=== PATIENT | female | born 1965 | race Caucasian/White ===

== ENCOUNTER 2016-12-05 14:31 | Emergency (ER) | payer OTHER ==
--- NOTE | 2016-12-05 16:20 | DIAGNOSTIC IMAGING REPORT ---
PROCEDURE: XR CHEST 2 VIEW INDICATION: COUGH TECHNIQUE: Two views COMPARISON: 09/03/2015 FINDINGS: The cardiomediastinal contour is normal. No central venous congestion. The pulmonary arteries are prominent. The lungs hyperinflated but clear without focal consolidation, pleural effusion or pneumothorax. The osseous structures are intact. IMPRESSION: 1. No acute disease. 2. Findings of COPD/emphysema.
--- NOTE | 2016-12-05 16:35 | ED ORDER SUMMARY ---
..... Patient: VELASQUEZ RICH OrderSheet [facility] VisitID: [id number] [address] [place] [address] 51y, F Registration Date/Time: 12/05/2016 ORDER SHEET Weight: 95.2 kg (stated) Allergies: Codeine GENERAL ORDERS: CBC w Diff Urgent (15:01 12/05/2016 EKoroleva P.A.-C) (Ack 15:04 IJurca R.N.) (15:18 KKnebel R.N.) CMP Urgent (15:01 12/05/2016 EKoroleva P.A.-C) (Ack 15:04 IJurca R.N.) (15:18 KKnebel R.N.) UA-Culture if indicated Urgent (15:01 12/05/2016 EKoroleva P.A.-C) (Ack 15:04 IJurca R.N.) (15:19 KKnebel R.N.) TSH Urgent (15:01 12/05/2016 EKoroleva P.A.-C) (Ack 15:04 IJurca R.N.) (15:18 KKnebel R.N.) CBC w Diff Urgent (15:03 12/05/2016 EKoroleva P.A.-C) (Ack 15:04 IJurca R.N.) (15:18 KKnebel R.N.) CMP Urgent (15:03 12/05/2016 EKoroleva P.A.-C) (Ack 15:04 IJurca R.N.) (15:18 KKnebel R.N.) Chest 2V Urgent (15:53 12/05/2016 EKoroleva P.A.-C) (Ack 15:56 PWeiler ER Tech1) (16:12 LNations ER Tech1) Vitals (16:39 12/05/2016 EKoroleva P.A.-C) (17:08 LWhalen R.N.) MEDICATION ORDERS: DuoNeb Neb Tx 1 unit dose (NOW) (16:18 12/05/2016 EKoroleva P.A.-C) (Ack 16:26 KKnebel R.N.) (17:08 Simba AbadNYung) IV FLUIDS: IV NS : initial bolus 1000 mL (1000 mL/hr), then 1000 mL/hr for X1 (NOW); Virgil (15:02 12/05/2016 Eren P.AYung-Kathy) (15:25 Brittnee R.N.) ORDER SHEET NOTES: [Electronically signed by Jeni Rust R.N. (17:11 12/05/2016)] [Electronically signed by Brea WatersAYung-Kathy (18:01 12/05/2016)] [Electronically locked/signed by Jeni Rust R.N. (17:11 12/05/2016)]
--- NOTE | 2016-12-05 16:35 | ED NURSING NOTES ---
Clinical Report - Nurses [facility] [address] [place] [address] 12/05/2016 14:35 Patient: VELASQUEZ RICH TRIAGE Triage time 14:42 Dec 05 2016. Acuity: LEVEL 3. Chief Complaint: COUGH. Alert. No acute distress. KAI COMA SCORE: Kai Coma Scale: 15- eyes open spontaneously (4); best verbal response- oriented x 4 (5); best motor response- obeys commands (6). --14:47 Funmi Daniels R.N. 14:42 12/05/16. BP: 110/73. HR: 72. RR: 16. O2 saturation: 100%. Temp: 97.6 F. Pain level now: 06/07. --14:47 Funmi Daniels R.N. Weight: 95.2 kg stated. Height/Length: 64 inches Per Patient. BMI: 36.1. --14:46 Funmi Daniels R.N. Medications Albuterol Sulfate HFA Inhalation, as needed. Augmentin Oral 875 mg, 2x a day. Hydrocodone-Acetaminophen Oral (Solution 7.5-325 mg/15mL), as needed. --17:11 Jeni Rust R.N. Lisinopril Oral. Lovastatin Oral. Nasacort AQ Nasal, as needed. --17:11 Jeni Rust R.N. Allergies Codeine. --17:11 Jeni Rust R.N. History Arrived by private vehicle. Historian: patient. The patient has had a headache, sinus pain and difficulty breathing. ( dizzy). PAST MEDICAL HX: Immunizations: up-to-date. The patient is post-menopausal. SOCIAL HX: Current every day light tobacco smoker (cigarette)- less than 1/2 a pack per day. History of drug use: marijuana. Recently used drugs yesterday. No alcohol use. No infectious disease exposure. SELF HARM ASSESSMENT: A self harm assessment was performed. The patient answered "no" to the question "Do you have thoughts of harming or killing yourself?" and "Have you recently had thoughts about harming or killing others?". FALL RISK ASSESSMENT: Fall risk assessment completed. No fall risk identified. NUTRITIONAL RISK ASSESSMENT: The nutritional risk assessment revealed no deficiencies. FUNCTIONAL ASSESSMENT: Functional assessment: no impairments noted. LEARNING NEEDS ASSESSMENT: The learning needs assessment revealed no barriers. ABUSE ASSESSMENT: Abuse assessment: The patient was asked "Do you feel safe in your home?". SKIN INTEGRITY ASSESSMENT: Skin integrity risk assessment completed. No skin integrity risk identified. --14:47 Funmi Daniels R.N. Interventions ID band on patient. To room. --14:47 Funmi Daniels R.N. PHYSICAL ASSESSMENT Ambulatory to room. GENERAL / NEURO / PSYCH: Alert. Oriented X 4. Appears in no acute distress. HEENT: Voice within normal limits. RESPIRATORY: Respirations not labored. The patient can speak in full sentences. Crackles in the bases bilaterally. Nonproductive cough. Expiratory wheezes present. CVS: Capillary refill less than 2 seconds. SKIN: Skin is warm and dry. --14:50 Funmi Daniels R.N. NURSING PROGRESS NOTES Oxygen administered. Patient gowned. Head of bed elevated. Patient identifiers checked. Call light placed in reach. Bed placed in lowest position. Brakes of bed on. --14:50 Funmi Daniels R.N. 15:15 12/05/16. Patient ID band checked for patient name and birthdate: patient confirmed. Blood samples drawn from the right antecubital space with 21g butterfly by nurse ; labeled in presence of the patient and sent to lab: rainbow set. --15:26 Funmi Daniels R.N. 15:25 12/05/2016 Site #1 started via IV in the left antecubital space with an 20g angiocath, with aseptic technique and good blood return; one attempt. Saline lock flushed. --15:25 Funmi Daniels R.N. 15:25 12/05/2016 Started bag #1 1000 mL IV Fluids IV NS (Saline); bolus of 1000 mL over 1 hour(s) via site #1. Allergies verified and confirmed 5 rights. IV patency established. IV site checked: no pain, redness, or swelling. IV flushed thoroughly pre- and post-medication administration. --15:25 Funmi Daniels R.N. 16:58 12/05/2016 Duoneb (Ipratropium-Albuterol) Neb TX Nebulizer 1 unit dose given. Given by the respiratory therapist. --17:08 Jeni Rust R.N. DISPOSITION / DISCHARGE Departure time: :Dec 05 2016. Condition at departure: improved. No learning barriers present. Discharge instructions provided and reviewed with the patient. Reviewed warnings. Reviewed medication(s). Treatments reviewed. Reviewed referrals. Patient verbalized understanding. Written instructions provided in Cymro. The patient was discharged home. She left the Emergency Department ambulatory and via private vehicle. Patient driving. --17:10 Jeni Rust R.N. 17:08 12/05/16. BP: 146/80. HR: 66. RR: 18. O2 saturation: 97%. Temp: 98.4 F. Pain level now 07/08. --17:10 Jeni Rust R.N. 17:05 12/05/2016 Site #1 removed upon discharge. Catheter intact. Pressure dressing applied. --17:10 Jeni Rust R.N. Locked/Released at 12/05/2016 17:11 by Jeni Rust R.N.
--- NOTE | 2016-12-05 16:35 | ED ORDER SUMMARY ---
..... Patient: VELASQUEZ RICH OrderSheet [facility] VisitID: [id number] [address] [place] [address] 51y, F Registration Date/Time: 12/05/2016 ORDER SHEET Weight: 95.2 kg (stated) Allergies: Codeine GENERAL ORDERS: CBC w Diff Urgent (15:01 12/05/2016 EKoroleva P.A.-C) (Ack 15:04 IJurca R.N.) (15:18 KKnebel R.N.) CMP Urgent (15:01 12/05/2016 EKoroleva P.A.-C) (Ack 15:04 IJurca R.N.) (15:18 KKnebel R.N.) UA-Culture if indicated Urgent (15:01 12/05/2016 EKoroleva P.A.-C) (Ack 15:04 IJurca R.N.) (15:19 KKnebel R.N.) TSH Urgent (15:01 12/05/2016 EKoroleva P.A.-C) (Ack 15:04 IJurca R.N.) (15:18 KKnebel R.N.) CBC w Diff Urgent (15:03 12/05/2016 EKoroleva P.A.-C) (Ack 15:04 IJurca R.N.) (15:18 KKnebel R.N.) CMP Urgent (15:03 12/05/2016 EKoroleva P.A.-C) (Ack 15:04 IJurca R.N.) (15:18 KKnebel R.N.) Chest 2V Urgent (15:53 12/05/2016 EKoroleva P.A.-C) (Ack 15:56 PWeiler ER Tech1) (16:12 LNations ER Tech1) Vitals (16:39 12/05/2016 EKoroleva P.A.-C) (17:08 LWhalen R.N.) MEDICATION ORDERS: DuoNeb Neb Tx 1 unit dose (NOW) (16:18 12/05/2016 EKoroleva P.A.-C) (Ack 16:26 KKnebel R.N.) (17:08 Simba AbadNYung) IV FLUIDS: IV NS : initial bolus 1000 mL (1000 mL/hr), then 1000 mL/hr for X1 (NOW); Virgil (15:02 12/05/2016 Eren P.AYung-Kathy) (15:25 Brittnee R.N.) ORDER SHEET NOTES: [Electronically signed by Jeni Rust R.N. (17:11 12/05/2016)] [Electronically signed by Brea WatersAYung-Kathy (18:01 12/05/2016)] [Electronically locked/signed by Jeni Rust R.N. (17:11 12/05/2016)]
--- NOTE | 2016-12-05 16:35 | ED CLINICAL REPORT ---
Clinical Report - Physicians/Mid Levels [facility] [address] [place] [address] 12/05/2016 14:35 Patient: VELASQUEZ RICH Time Seen: 15:01 Dec 05 2016. Arrived- By private vehicle. Historian- patient. HISTORY OF PRESENT ILLNESS Chief Complaint: COUGH and SINUS PAIN. 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 The patient has had a cough and difficulty breathing. No nasal congestion or discharge. (patient presents with weakness, cough. He reports the time she has had a headache, frontal in nature with congestion, because production in the morning. Patient is awaiting new PCP, surgeries and PCP has left, Dr. Kauffman. Denies hemoptysis. Denies hematochezia. Denies recent travel. patient with no syncope, no worsening of her shortness of breath No chest pain.). Additional history - No known contact with a sick individual. REVIEW OF SYSTEMS No headache, nausea, diarrhea, abdominal pain or pedal edema. All systems otherwise negative, except as recorded above. PAST HISTORY Problems: Bronchospasm. Sinusitis. Bronchitis. Hypertension. Hypercholesterolemia. Additional Surgeries: Tonsillectomy. Tubal Ligation. SOCIAL HISTORY Current every day smoker. History of drug use: marijuana. ADDITIONAL NOTES The nursing notes have been reviewed. PHYSICAL EXAM Vital Signs: 12/05/2016 14:42 BP: 110/73. HR: 72. RR: 16. O2 saturation: 100%. Temp: 97.6 F. Pain level now: 06/07. Appearance: Alert. No acute distress. Eyes: Eyes normal inspection. ENT: Ears normal. Pharynx normal. Uvula midline. No nasal discharge, tonsillar exudate, muffled or hoarse voice or trismus. Neck: Normal inspection. No lymphadenopathy. CVS: Normal heart rate and rhythm. Pulses normal. Respiratory: No respiratory distress. No retractions. Abdomen: Soft and nontender. No guarding. Skin: Normal skin color. No rash. Neuro: Oriented X 3. LABS, X-RAYS, AND EKG Chest X-ray: (IMPRESSION: 1. No acute disease. 2. Findings of COPD/emphysema. Electronically Final signed by:Avis Cantu MD 12/05/2016 4:20:18 PM). Laboratory Tests: UA-Culture if indicated: (VINCENT: 12/05/2016 15:15) ( MsgRcvd 12/05/2016 15:42) Final results Test Result Flag Units (Reference) URINE COLOR YELLOW URINE APPEARANCE CLEAR URINE GLUCOSE NEGATIVE (NEGATIVE) URINE BILIRUBIN NEGATIVE (NEGATIVE) URINE KETONE NEGATIVE (NEGATIVE) URINE SPECIFIC GRAVITY 1.010 (1.010-1.030) URINE PH 7.5 (5.0-8.0) URINE PROTEIN NEGATIVE (NEGATIVE) URINE UROBILINOGEN 0.2 EU/dL (0.2-1.0) URINE NITRITE NEGATIVE (NEGATIVE) URINE BLOOD NEGATIVE (NEGATIVE) URINE LEUK ESTERASE NEGATIVE (NEGATIVE) URINE RBC NONE SEEN rbc/hpf (0-1) URINE WBC NONE SEEN wbc/hpf (0-1) URINE EPITHELIAL CELLS 3-5 EPI/hpf (0-5) URINE BACTERIA NONE SEEN (NONE SEEN) URINE COMMENT CULT NOT INDICATED URINE CULTURES ARE SET-UP BASED ON THE FOLLOWING CRITERIA:POSITIVE NITRITEPOSITIVE LEUKOCYTE ESTERASEGREATER THAN 10 WHITE BLOOD CELLSMODERATE (2+) OR GREATER BACTERIA CBC w Diff: (VINCENT: 12/05/2016 15:15) ( MsgRcvd 12/05/2016 15:25) Final results Test Result Flag Units (Reference) WHITE BLOOD COUNT 7.4 K/uL (4.5-11.5) RED BLOOD COUNT 5.21 H M/uL (4.00-5.20) HEMOGLOBIN 16.3 H gm/dL (12.0-16.0) HEMATOCRIT 47.6 H % (36.0-46.0) MEAN CELL VOLUME 91 fL (80-100) MEAN CORPUSCULAR HGB 31 pg (26-34) MEAN CORPUSCULAR HGB CONC 34 g/dL (31-37) RED CELL DISTRIBUTION WIDTH 13.0 % (11.6-14.8) PLATELET COUNT 182 K/uL (150-400) NEUTROPHIL % 57.2 % (50-75) LYMPH % 30.0 % (25-40) MONO % 8.1 % (3-14) EOSINOPHIL % 3.8 % (0-4) BASOPHIL % 0.9 % (0-2) CMP: (VINCENT: 12/05/2016 15:15) ( MsgRcvd 12/05/2016 15:46) Final results Test Result Flag Units (Reference) GLUCOSE 85 mg/dL (70-110) BUN 9 mg/dL (7-18) CREATININE 0.7 mg/dL (0.6-1.3) Estimated GFR >60 mL/min Estimated GFR- >60 mL/min Note: Persistent reduction over 3 months in eGFR<60 mL/min/1.73 m2 defines CKD. Patients with eGFR values>=60 mL/min/1.73 m2 may also have CKD if evidence ofpersistent proteinuria. Additional information may be foundat www.kidney.org. SODIUM 144 mmol/L (136-145) POTASSIUM 3.9 mmol/L (3.5-5.1) CHLORIDE 108 H mmol/L (98-107) CARBON DIOXIDE 27 mmol/L (21-32) CALCIUM 8.8 mg/dL (8.5-10.1) TOTAL PROTEIN 7.1 g/dL (6.4-8.2) ALBUMIN 4.0 g/dL (3.3-5.0) BILIRUBIN, TOTAL 0.7 mg/dL (0.0-1.0) ALKALINE PHOSPHATASE 103 U/L (46-116) AST (SGOT) 28 U/L (15-37) ALT (SGPT) 65 U/L (12-78) THYROID STIMULATING HORMONE 1.109 uIU/mL (0.34-3.74) . PROGRESS AND PROCEDURES Course of Care: here in the ER patient with multiple symptoms, will largely negative exam. Workup is unremarkable. Chest x-ray unremarkable. Patient appears to have underlying COPD, may be stressing a viral syndrome. No hemoptysis, no signs of sepsis. Patient stable to follow up outpatient. Patient is stable. Physical exam findings are improved. Symptoms better. Patient/family counseled. Disposition: Discharged. CLINICAL IMPRESSION Acute exacerbation of COPD. Acute viral syndrome INSTRUCTIONS Drink plenty of fluids. (call to establish pcp). Prescription Medications: Robitussin A-C cough syrup take five (5) mL orally every 6 hours as needed for cough for 3 days. Dispense sixty (60) mL. No refill. Substitution is permissible. Zithromax 250 mg tablets: take 2 orally today, followed by 1 daily for the next 4 days. No refills. Substitution is permissible. (Electronically signed by Brea Waters P.A.-C 12/05/2016 18:01)
--- NOTE | 2016-12-05 18:01 | ED MAR SUMMARY ---
..... Medication Administration Record [facility] [address] [place] [address] Patient: VELASQUEZ RICH Visit ID: [id number] 51y, F Weight: 95.2 kg Height/Length: 64 in BMI: 36.1 ALLERGIES: Codeine Start 15:25 12/05/2016 Funmi Daniels RShahriar Medication Administered: IV NS (SALINE), Dose: IV Fluids, Bolus: 1000 mL over 1 hour(s), Dispensed: 1000 mL bag, Site: #1 left . Medication Ordered: IV NS : initial bolus 1000 mL (1000 mL/hr), then 1000 mL/hr for X1 (NOW); Virgil. Given 16:58 12/05/2016 Jeni Rust RShahriar Medication Administered: DUONEB [NEB TX] (IPRATROPIUM-ALBUTEROL), Dose: 1 unit dose Nebulizer Neb TX. Medication Ordered: DuoNeb Neb Tx 1 unit dose (NOW).
--- NOTE | 2016-12-05 18:01 | ED MAR SUMMARY ---
..... Medication Administration Record [facility] [address] [place] [address] Patient: VELASQUEZ RICH Visit ID: [id number] 51y, F Weight: 95.2 kg Height/Length: 64 in BMI: 36.1 ALLERGIES: Codeine Start 15:25 12/05/2016 Funmi Daniels RShahriar Medication Administered: IV NS (SALINE), Dose: IV Fluids, Bolus: 1000 mL over 1 hour(s), Dispensed: 1000 mL bag, Site: #1 left . Medication Ordered: IV NS : initial bolus 1000 mL (1000 mL/hr), then 1000 mL/hr for X1 (NOW); Virgil. Given 16:58 12/05/2016 Jeni Rust RShahriar Medication Administered: DUONEB [NEB TX] (IPRATROPIUM-ALBUTEROL), Dose: 1 unit dose Nebulizer Neb TX. Medication Ordered: DuoNeb Neb Tx 1 unit dose (NOW).
--- NOTE | 2016-12-05 18:01 | ED MED RECONCILIATION SUMMARY ---
Patient: VELSAQUEZ RICH Medication Reconciliation Report [facility] VisitID: [id number] [address] [place] [address] 51y, F Registration Date/Time: 12/05/2016 Weight: 95.2 kg Height/Length: 64 in. BMI: 36.1 ALLERGIES: Codeine The patient's Home Medications are listed below: THE FOLLOWING MEDICATIONS NEED TO BE RECONCILED: Albuterol Sulfate HFA Inhalation Augmentin Oral 875 mg, 2x a day Hydrocodone-Acetaminophen Oral (7.5-325 mg/15mL) Lisinopril Oral Lovastatin Oral Nasacort AQ Nasal The source(s) of the original Home Medication information: Not obtained. The following Medications were given to the patient in the Emergency Department: IV NS IV Fluids bolus 1000 mL over 1 hour(s), administered: 12/05/2016 3:25:00 PM Duoneb [Neb Tx] Neb TX 1 unit dose, administered: 12/05/2016 4:58:00 PM The following Medications were prescribed to the patient: Robitussin A-C cough syrup take five (5) mL orally every 6 hours as needed for cough for 3 days. Dispense sixty (60) mL. No refill. Substitution is permissible. -- Brea Waters P.A.-C Zithromax 250 mg tablets: take 2 orally today, followed by 1 daily for the next 4 days. No refills. Substitution is permissible. -- Brea Waters P.A.-C
--- NOTE | 2016-12-05 18:01 | ED DISCHARGE INSTRUCTIONS ---
Patient: VELASQUEZ RICH General Instructions [facility] VisitID: [id number] [address] [place] [address] 51y, F Registration Date/Time: 12/05/2016 Acute exacerbation of COPD. Acute viral syndrome INSTRUCTIONS Drink plenty of fluids. (call to establish pcp). Prescription Medications: Robitussin A-C cough syrup take five (5) mL orally every 6 hours as needed for cough for 3 days. Dispense sixty (60) mL. No refill. Substitution is permissible. Zithromax 250 mg tablets: take 2 orally today, followed by 1 daily for the next 4 days. No refills. Substitution is permissible. ADDITIONAL INFORMATION COPD Flare Both emphysema and chronic bronchitis are forms of chronic obstructive pulmonary disease (COPD). It is most often caused by many years of smoking tobacco. Many things can make your lung disease suddenly get worse. These causes include the common cold, pneumonia, acute bronchitis, missing doses of your regular breathing medicines, or being around smoke, dust, or other air pollutants. A COPD flare may last 7 to 14 days. Your doctor may prescribe medicineto relax your airways and prevent wheezing. Your doctor may also prescribe antibiotics if he or she thinks you havea bacterial infection. Prednisone can helpease inflammation in a severe attack. Home care Here are things you can do at home: Drink lots of water or other fluids (at least 10 glasses a day) during an attack. This will loosen lung secretions and make it easier to breathe. If you have heart or kidney disease, check with your doctor before you drink extra amounts of fluids. Take prescribed medicine exactly at the times advised. If you have a hand-held inhaler or aerosol breathing medicine, don't use it more than once every 4 hours, unless your doctor tells you to. If you were givenan antibiotic or prednisone, take all of the medicine even if you are feeling better after a few days. Don't smoke. Avoid being aroundthe smoke of others. If you were given an inhaler, use it exactly as directed. If you need to use it more often than prescribed, your condition may be getting worse. Call your doctor. Follow-up care Follow up with your health care provider.If you are 65 or older or have chronic asthma or COPD, you should get a single dose of the pneumococcal vaccine and aflu shot each year. You may need a second dose of the pneumococcal vaccine if you had the first dose at a younger age. Your health care provider will let you know if you need a second dose. For all other people, the usual dose for the pneumococcal vaccine is 1 or 2 shots. Yourprovider can discuss this with you. When to seek medical care Get prompt medical attention ifany of these occur: Increased wheezing or shortness of breath Need to use your inhalers more often than usual without relief Fever of 100.4F(38C) or higher, or as directed by your health care provider Coughing up lots of dark-colored or bloody sputum (mucus) Chest pain with each breath You do not start to improve within 24 hours Viral Syndrome (Adult) A viral illness may cause a number of symptoms. The symptoms depend on the part of the body that the virus affects. If it settles in the nose, throat, and lungs, it may cause cough, sore throat, congestion, and sometimes headache. If it settles in the stomach and intestinal tract, it may cause vomiting and diarrhea. Sometimes it causes vague symptoms like "aching all over," feeling tired, loss of appetite, or fever. A viral illness usually lasts1 to 2 weeks, but sometimes it lasts longer. In some cases, a more serious infection can look like a viral syndrome in the first few days of the illness. You may need anotherexam and additional teststo know the difference.Watch for the warning signs listed below. Home care Follow these guidelines for taking care of yourself at home: If symptoms are severe, rest at home for the first 2 to 3 days. Stay away from cigarette smoke - both your smoke and the smoke from others. You may useacetaminophen or ibuprofen for fever, muscle aching, and headache, unless another medicine was prescribed for this.If you have chronic liver or kidney disease or ever had a stomach ulcer or GI bleeding, talk with your doctor before using these medicinesNo one who is younger than 18 and ill with a fever should take aspirin. It may cause severe liver damage. Your appetite may be poor, so a light diet is fine. Avoid dehydration by drinking 8 to 12 8-ounce glasses of fluids each day. This may include water; orange juice; lemonade; apple, grape, and cranberry juice; clear fruit drinks; electrolyte replacement and sports drinks; and decaffeinated teas and coffee. If you have been diagnosed with a kidney disease, ask your doctor how much and what types of fluids you should drink to prevent dehydration. If you have kidney disease, drinking too much fluid can cause it build up in the your body and be dangerous to your health. Sbea-yka-yvjswra remedies won't shorten the length of the illness but may be helpful forcough, sore throat; and nasal and sinus congestion. Don't use decongestants if you have high blood pressure. Follow-up care Follow up with your health care provider if you do not improve over the next week. When to seek medical care Get prompt medical attention if any of these occur: Cough with lots of colored sputum (mucus) or blood in your sputum Chest pain, shortness of breath, wheezing, or difficulty breathing Severe headache; face, neck, or ear pain Severe, constant pain in the lower right side of your belly (abdominal) Continued vomiting (cant keep liquids down) Frequent diarrhea (more than 5 times a day); blood (red or black color) or mucus in diarrhea Feeling weak, dizzy, or like you are going to faint Extreme thirst Fever of 100.4 F (38 C) oral or higher, not better with fever medication Convulsion You have been given the following additional information: COPD Flare Viral Syndrome (Adult) (Electronically signed by Brea Waters P.A.-C 12/05/2016 18:01)
--- NOTE | 2016-12-05 18:01 | ED MED RECONCILIATION SUMMARY ---
Patient: VELASQUEZ RICH Medication Reconciliation Report [facility] VisitID: [id number] [address] [place] [address] 51y, F Registration Date/Time: 12/05/2016 Weight: 95.2 kg Height/Length: 64 in. BMI: 36.1 ALLERGIES: Codeine The patient's Home Medications are listed below: THE FOLLOWING MEDICATIONS NEED TO BE RECONCILED: Albuterol Sulfate HFA Inhalation Augmentin Oral 875 mg, 2x a day Hydrocodone-Acetaminophen Oral (7.5-325 mg/15mL) Lisinopril Oral Lovastatin Oral Nasacort AQ Nasal The source(s) of the original Home Medication information: Not obtained. The following Medications were given to the patient in the Emergency Department: IV NS IV Fluids bolus 1000 mL over 1 hour(s), administered: 12/05/2016 3:25:00 PM Duoneb [Neb Tx] Neb TX 1 unit dose, administered: 12/05/2016 4:58:00 PM The following Medications were prescribed to the patient: Robitussin A-C cough syrup take five (5) mL orally every 6 hours as needed for cough for 3 days. Dispense sixty (60) mL. No refill. Substitution is permissible. -- Brea Waters P.A.-C Zithromax 250 mg tablets: take 2 orally today, followed by 1 daily for the next 4 days. No refills. Substitution is permissible. -- Brea Waters P.A.-C
== END 2016-12-05 17:10 | disposition home or self-care (01) ==
LOC: ED SRH 14:31
DX: J44.1 Chronic obstructive pulmonary disease with (acute) exacerbation (principal); B34.9 Viral infection, unspecified; I10 Essential (primary) hypertension; F17.210 Nicotine dependence, cigarettes, uncomplicated; F12.10 Cannabis abuse, uncomplicated; Z88.5 Allergy status to narcotic agent
CPT/HCPCS: 90004; 90100; 93140; 95059